=== PATIENT | female | born 1955 | race Two or more races ===

== ENCOUNTER 2018-01-18 07:41 | Outpatient (CLI) | payer OTHER ==
[~2018-01-18 07:41] MED LIST: XOPENEX1.25 MG/0. IH; [UNRECOGNIZED DRUG - OTHER] PO
== END 2018-01-18 07:55 | disposition home or self-care (01) ==
LOC: LAB 07:41
DX: E55.9 Vitamin D deficiency, unspecified (principal); E78.5 Hyperlipidemia, unspecified; E03.8 Other specified hypothyroidism; K52.89 Other specified noninfective gastroenteritis and colitis; I10 Essential (primary) hypertension; E11.9 Type 2 diabetes mellitus without complications; R19.5 Other fecal abnormalities; N39.0 Urinary tract infection, site not specified; N18.9 Chronic kidney disease, unspecified; M81.0 Age-related osteoporosis without current pathological fracture; K76.0 Fatty (change of) liver, not elsewhere classified; D64.89 Other specified anemias

== ENCOUNTER 2018-01-18 08:44 | Outpatient (CLI) | payer OTHER | END 2018-01-18 08:55 | disposition home or self-care (01) | LOC: RAD 08:44 | DX: R10.13 Epigastric pain (principal); K42.9 Umbilical hernia without obstruction or gangrene ==

== ENCOUNTER 2018-03-28 07:49 | Outpatient (CLI) | payer OTHER | END 2018-03-28 08:52 | disposition home or self-care (01) | LOC: LAB 07:49 | DX: D50.0 Iron deficiency anemia secondary to blood loss (chronic) (principal) ==

== ENCOUNTER 2018-12-28 07:00 | Inpatient (IN) | payer OTHER ==
[~2018-12-28] VITALS: Ht 165.1 cm; Wt 95.3 kg
[2018-12-28] MEDS ORDERED: ATIVAN1 MG PO (08:00)
[2018-12-28] MEDS ORDERED: PAXIL40 MG PO (08:00)
[2018-12-28] MEDS ORDERED: PROTONIX40 MG PO (08:00)
[2018-12-28] MEDS ORDERED: ZANTAC300 MG PO (08:01)
[2018-12-28] MEDS ORDERED: CARVEDILOL6.25 MG PO (08:01)
[2018-12-28] MEDS ORDERED: [UNRECOGNIZED DRUG - OTHER] PO (08:02)
[2018-12-28] MEDS ORDERED: COREG PO (08:18)
[2019-01-03] MEDS ORDERED: CARVEDILOL6.25 MG (08:10)
[2019-01-03] MEDS ORDERED: CARVEDILOL6.25 MG PO (08:11)
[2019-01-03] MEDS ORDERED: GLYCOPYRROLATE2 MG PO (08:14)
[2019-01-05] MEDS ORDERED: POLY119PG PO (07:23)
[2019-01-05] MEDS ORDERED: ULTRACET PO (07:23)
== END 2019-01-05 08:13 | disposition home or self-care (01) | DRG 328 ==
LOC: O/R 01-03 06:23 → SURH 01-03 07:00
PROVIDERS: ADMIT Surgery
PROC: 3E0F7GC Introduction of Other Therapeutic Substance into Respiratory Tract, Via Natural or Artificial Opening (ICD-10-PCS; 2019-01-03)
PROC: 0BUT4JZ Supplement Diaphragm with Synthetic Substitute, Percutaneous Endoscopic Approach (ICD-10-PCS; principal; 2019-01-03 09:30)
PROC: 0DJ08ZZ Inspection of Upper Intestinal Tract, Via Natural or Artificial Opening Endoscopic (ICD-10-PCS; 2019-01-03 09:30)
DX: K44.0 Diaphragmatic hernia with obstruction, without gangrene (principal); K31.89 Other diseases of stomach and duodenum; I10 Essential (primary) hypertension; J45.998 Other asthma; Z88.0 Allergy status to penicillin

== ENCOUNTER 2022-03-18 09:21 | Outpatient (CLI) | payer OTHER | END 2022-03-18 09:28 | disposition home or self-care (01) | LOC: MAMO-SONO 09:21 | PROVIDERS: ATTEND Obstetrics & Gynecology | DX: Z12.31 Encounter for screening mammogram for malignant neoplasm of breast (principal); N60.11 Diffuse cystic mastopathy of right breast; N60.12 Diffuse cystic mastopathy of left breast ==

== ENCOUNTER 2022-03-18 11:36 | Outpatient (CLI) | payer OTHER | END 2022-03-18 11:38 | disposition home or self-care (01) | LOC: LAB 11:36 | PROVIDERS: ATTEND Internal Medicine | DX: D64.9 Anemia, unspecified (principal); R10.9 Unspecified abdominal pain; E03.9 Hypothyroidism, unspecified; E78.5 Hyperlipidemia, unspecified; R80.9 Proteinuria, unspecified; E11.9 Type 2 diabetes mellitus without complications ==

== ENCOUNTER → 2022-03-18 | Outpatient (CLI) | payer OTHER ==
[~2022-03-18] MED LIST changes: +ATIVAN1 MG PO; +CARVEDILOL6.25 MG; +CARVEDILOL6.25 MG PO; +COREG PO; +GLYCOPYRROLATE2 MG PO; +PAXIL40 MG PO; +POLY119PG PO; +PROTONIX40 MG PO; +ULTRACET PO; +ZANTAC300 MG PO; +[UNRECOGNIZED DRUG - OTHER] PO
== END | disposition home or self-care (01) ==
LOC: NUCLEAR 08:23
PROVIDERS: ATTEND Obstetrics & Gynecology
DX: M81.0 Age-related osteoporosis without current pathological fracture (principal); Z88.0 Allergy status to penicillin; Z88.5 Allergy status to narcotic agent; Z88.1 Allergy status to other antibiotic agents

== ENCOUNTER 2024-04-10 13:29 | Outpatient (CLI) | payer OTHER | END 2024-04-10 13:30 | disposition home or self-care (01) | LOC: NUCLEAR 13:29 | PROVIDERS: ATTEND Internal Medicine | DX: M81.0 Age-related osteoporosis without current pathological fracture (principal) ==